=== PATIENT | female | born 1935 | race Caucasian/White ===

== ENCOUNTER 2021-03-10 03:16 | Emergency (ER) | payer MEDICARE, OTHER ==
[2021-03-10 03:49] LABS: HEMOGLOBIN 14.2 gm/dl (12.3-15.3); RED BLOOD COUNT 4.25 M/UL (4.00-5.10); WHITE BLOOD COUNT 8.9 K/UL (4.5-11.0)
[2021-03-10 04:28] LABS: BUN/CREATININE RATIO 44 (0-10)
== END 2021-03-10 09:36 | disposition short-term general hospital (02) ==
LOC: ER1 03:16
PROVIDERS: Physician Assistant
DX: S12.000A Unspecified displaced fracture of first cervical vertebra, initial encounter for closed fracture (principal); S12.110A Anterior displaced Type II dens fracture, initial encounter for closed fracture; S00.93XA Contusion of unspecified part of head, initial encounter; I48.91 Unspecified atrial fibrillation; R41.82 Altered mental status, unspecified; Z20.822 Contact with and (suspected) exposure to COVID-19; W19.XXXA Unspecified fall, initial encounter
CPT/HCPCS: 70450; 71045; 72125; 80053; 80307; 81001; 82550; 82553; 83605; 83690; 83735; 83874; 83880; 84439; 84443; 84484; 85025; 85610; 85730; 87040; 87086; 93005; 96374; 96375; 96376; 99285; J0295; U0002